=== PATIENT | male | born 1985 | race Caucasian/White ===

== ENCOUNTER 2020-09-30 07:28 | Observation (INO) | payer MEDICARE, OTHER ==
[~2020-09-30] VITALS: Ht 190.5 cm; Wt 122.5 kg
[2020-09-30 08:13] LABS: HEMOGLOBIN 15.5 gm/dl (14.0-17.5); RED BLOOD COUNT 4.96 M/UL (4.20-5.50); WHITE BLOOD COUNT 17.9 K/UL (4.5-11.0)
[2020-09-30 08:35] LABS: BUN/CREATININE RATIO 12 (0-10)
[2020-09-30] MEDS ORDERED: INDERAL TAB 2020 MG PO (10:37)
[2020-09-30] MEDS ORDERED: SULFASALAZINE500 MG PO (10:37)
[2020-10-01 03:30] LABS: RED BLOOD COUNT 4.48 M/UL (4.20-5.50); WHITE BLOOD COUNT 20.3 K/UL (4.5-11.0)
[2020-10-01 04:02] LABS: BUN/CREATININE RATIO 19 (0-10)
[2020-10-02 03:57] LABS: HEMOGLOBIN 14.1 gm/dl (14.0-17.5); RED BLOOD COUNT 4.37 M/UL (4.20-5.50)
[2020-10-02 03:58] LABS: WHITE BLOOD COUNT 14.3 K/UL (4.5-11.0)
[2020-10-02 04:26] LABS: BUN/CREATININE RATIO 24 (0-10)
[2020-10-02 12:12] LABS: HEMOGLOBIN 14.8 gm/dl (14.0-17.5); RED BLOOD COUNT 4.71 M/UL (4.20-5.50); WHITE BLOOD COUNT 13.2 K/UL (4.5-11.0)
[2020-10-02] MEDS ORDERED: CLEOCIN HCL300 MG PO ×2 (12:13→12:53)
--- NOTE | 2020-10-02 15:31 | NUR ---
PATIENT WAITING ON RIDE
--- NOTE | 2020-10-02 16:47 | NUR ---
PATIENT LEFT WITHOUT SIGNING D/C PAPERS . IV WAS D/C'D BEFORE LEAVING PRESCRIPTIONS LEFT HERE TRIED TO CALL THE NUMBER IN THE CHART NO ANSWER.
== END 2020-10-02 17:07 | disposition home or self-care (01) ==
LOC: ER1 07:28 → MED SURG 4 08:58 → ZEROF 08:58 → MED SURG 4 08:58
PROVIDERS: Emergency Medicine; Physician Assistant; ADMIT Internal Medicine
DX: R56.9 Unspecified convulsions (principal); R55 Syncope and collapse; J18.8 Other pneumonia, unspecified organism; J96.91 Respiratory failure, unspecified with hypoxia; R41.82 Altered mental status, unspecified; F19.10 Other psychoactive substance abuse, uncomplicated; E87.2 Acidosis; K80.20 Calculus of gallbladder without cholecystitis without obstruction; E66.9 Obesity, unspecified; R59.9 Enlarged lymph nodes, unspecified; K44.9 Diaphragmatic hernia without obstruction or gangrene; D72.829 Elevated white blood cell count, unspecified; F17.210 Nicotine dependence, cigarettes, uncomplicated; Z79.899 Other long term (current) drug therapy; Z68.33 Body mass index [BMI] 33.0-33.9, adult; Z20.822 Contact with and (suspected) exposure to COVID-19
CPT/HCPCS: ECHO; 36415; 36600; 70450; 70553; 71045; 71046; 80048; 80053; 80307; 81001; 82550; 82553; 82803; 83605; 83874; 83880; 84484; 85025; 85027; 85379; 87040; 93306; 95819; 96365; 96367; 96375; 97161; 99285; A9577; G0378; J0456; J1200; J1335; J2543; J7030; J7120; Q9967; U0002

== ENCOUNTER 2021-06-20 07:46 | Emergency (ER) | payer MEDICARE, OTHER ==
[~2021-06-20 07:46] MED LIST: CLEOCIN HCL300 MG PO; INDERAL TAB 2020 MG PO; SULFASALAZINE500 MG PO
[2021-06-20 08:41] LABS: HEMOGLOBIN 14.8 gm/dl (14.0-17.5); RED BLOOD COUNT 4.54 M/UL (4.20-5.50); WHITE BLOOD COUNT 12.4 K/UL (4.5-11.0)
== END 2021-06-20 18:00 ==
LOC: ER1 07:46
PROVIDERS: Physician Assistant
DX: R44.0 Auditory hallucinations (principal); N17.9 Acute kidney failure, unspecified; E87.6 Hypokalemia; F19.10 Other psychoactive substance abuse, uncomplicated; F17.210 Nicotine dependence, cigarettes, uncomplicated; Z20.822 Contact with and (suspected) exposure to COVID-19
CPT/HCPCS: 71045; 80053; 80307; 81001; 82550; 82553; 83874; 84484; 85025; 93005; 99285; J2060; U0002